=== PATIENT | female | born 1980 | race Hispanic/Latino ===

== ENCOUNTER 2021-08-31 06:17 | Day surgery (SDC) | payer OTHER ==
[2021-08-31 07:03] LABS: Basophils # (Auto) 0.1 K/mm3 (0.0-0.1); Basophils % (Auto) 0.8 % (0.0-1.8); Eosinophils # (Auto) 0.1 K/mm3 (0.0-0.4); Eosinophils % (Auto) 1.3 % (0.0-4.3); Lymphocytes # (Auto) 2.9 K/mm3 (1.2-5.4); Lymphocytes % (Auto) 41.6 % (13.4-35.0); Mean Corpuscular HGB Conc 33 % (30-34); Mean Corpuscular Volume 88 fl (79-97); Monocytes # (Auto) 0.5 K/mm3 (0.0-0.8); Monocytes % (Auto) 7.7 % (0.0-7.3); Platelet Count 258 K/mm3 (140-440); Red Blood Count 4.42 M/mm3 (3.65-5.03); Red Cell Distribution Width 13.4 % (13.2-15.2)
[2021-08-31 07:13] LABS: INR 0.96 (0.87-1.13)
[2021-08-31 07:14] LABS: Partial Thromboplastin Time 26.9 Sec. (24.2-36.6)
[2021-08-31 07:15] LABS: Blood Urea Nitrogen 6 mg/dL (7-17); Calcium 9.4 mg/dL (8.4-10.2); Hemolysis Index 3
[2021-08-31 07:26] LABS: BUN/Creatinine Ratio 10
[2021-08-31] MEDS: SODIUM CHLORIDE 0.9% 500 ML 500 ML IV SCH ×2 (07:52→08:14)
[2021-08-31] MEDS ORDERED: HEPARIN/NS 5000 UNIT/500ML 1,000 ML IR ONE (08:07)
[2021-08-31] MEDS ORDERED: HEPARIN 10,000 UNITS/10 ML VIAL ONE (08:08)
[2021-08-31] MEDS: MIDAZOLAM 2 MG/2 ML INJ ONE ×3 (08:13→09:19)
[2021-08-31] MEDS: LIDOCAINE (1%) 10 MG/1 ML VIAL 20 ML MDV ONE ×2 (08:14→09:07)
[2021-08-31] MEDS: fentaNYL 100 MCG/2 ML INJ ONE ×3 (08:14→09:20)
[2021-08-31] MEDS ORDERED: HEPARIN/NS 5000 UNIT/500ML 500 ML IR ONE (09:04)
--- NOTE | 2021-08-31 09:37 | Short Stay Summary ---
Short Stay Documentation Date of service: 08/31/21 - History Principal diagnosis: Venous hypertension with bilateral lower extremity pain, swelling and bulgi H&P: obtained from office - Allergies and Medications Current Medications: Allergies diphenhydramine [From Benadryl] Allergy (Verified 08/31/21 06:43) Shortness of Breath Iodinated Contrast Media Allergy (Verified 08/31/21 06:43) Hives latex Allergy (Verified 08/31/21 07:04) Rash Penicillins Allergy (Verified 08/31/21 06:43) Rash Home Medications Medication Instructions Recorded Confirmed Last Taken Type Albuterol Sulfate [Proventil Hfa] 6.7 gm IH PRN PRN 08/31/21 08/31/21 08/02/21 History 2 puffs HYDROcodone/APAP 5-325 [[place] 1 tab PO Q6H PRN 08/31/21 08/31/21 08/30/21 History 5-325 mg TAB] 1 tab Loratadine [Claritin] 10 mg PO DAILY 08/31/21 08/31/21 08/30/21 History 10 mg Ondansetron [Zofran ODT TAB] 1 tab PO Q8HR PRN 08/31/21 08/31/21 08/31/21 05:30 History hydrOXYzine HCL [Atarax] 25 mg PO PRN PRN 08/31/21 08/31/21 Unknown History predniSONE [Deltasone] 20 mg PO QDAY 08/31/21 08/31/21 08/30/21 History 20 mg Active Medications Sodium Chloride (Nacl 0.9% 500 Ml) 500 mls @ 50 mls/hr IV DIRECT DB Last Admin: 08/31/21 08:14 Dose: 50 mls/hr - Brief post op/procedure progress note Date of procedure: 08/31/21 Pre-op diagnosis: Venous hypertension, pelvic congestion Post-op diagnosis: same Procedure: Bilateral lower extremity venogram with intravascular ultrasound alone, venogram of left renal vein and left gonadal vein using gadolinium is contrast Anesthesia: local Surgeon: DORA THOMPSON Estimated blood loss: none Condition: stable - Disposition Condition at discharge: Good Disposition: 01 HOME / SELF CARE / HOMELESS Short Stay Discharge Plan Activity: advance as tolerated Weight Bearing Status: Weight Bear as Tolerated Diet: regular Wound: keep clean and dry, per your surgeon's advice Follow up with: ERIC HERRERA [Other] - 7 Days
--- NOTE | 2021-08-31 09:44 | Operative Report ---
Operative Report Operative Report: Exam: Bilateral lower extremity intravascular ultrasound, left renal venogram, left gonadal venogram Clinical indication: Patient with a history of abdominal pelvic pain as well as bilateral lower extremity pain who was noted to have significant compression of the common iliac veins on abdominal pelvic ultrasound as well as the presence of numerous pelvic varicosities. Date: 08/31/2021 Procedure: Following an explanation of the risk, benefits and alternatives; written informed consent was obtained. The patient was brought to the angiographic suite and placed in supine position on the examination table. Initial ultrasound evaluation of her right arm demonstrated a patent basilic vein. The patient's right arm was prepped and draped in the usual sterile fashion. 1% lidocaine was used for anesthesia. Under ultrasound guidance, the right basilic vein was cannulated with a 7 cm 18- gauge needle. A 0.035 guidewire was advanced centrally. The needle was removed and a 5 Pashto sheath placed. A vertebral catheter was then advanced over the guidewire and together the guidewire and catheter advanced centrally under fluoroscopy. Selective cannulation of the IVC was then performed under fluoroscopy and the guidewire and catheter advanced to the right proximal femoral vein. The catheter was removed. The sheath was upsized over the guidewire to a 8 Pashto sheath. Intravascular ultrasound was then performed. Images were obtained of the external iliac vein, common iliac vein and distal IVC. There is significant 60% stenosis within the external iliac vein, there is mild 40% stenosis within the common iliac vein. The intravascular ultrasound and guidewire were then withdrawn proximally under fluoroscopy and the guidewire directed down the left system. Together the catheter and guidewire were advanced into the left external iliac vein. There is near occlusive stenosis of the left common iliac vein of approximately 90%. There is 50% stenosis of the external iliac vein. The intravascular ultrasound catheter was then removed over the guidewire and the vertebral catheter again advanced over the guidewire. The catheter and guidewire were then advanced proximally in the IVC. The guidewire was exchanged for a Glidewire and selective cannulation of the left renal vein was then performed under fluoroscopy. Together the catheter and guidewire were advanced into the proximal left gonadal vein. Contrast was injected which demonstrates dilation of the left gonadal vein to approximately 8 mm in diameter. The catheter and guidewire were then advanced distally down the left gonadal vein. Contrast was injected. This demonstrates the presence of numerous pelvic varicosities which extends across from left to right through the bridging myometrial veins. There is significant delay in clearance of contrast with persistence of contrast staining within the varicosities on delayed imaging approximately 2 to 3 minutes later. The catheter and guidewire were then advanced proximally into the left renal vein. Contrast was injected. This demonstrates mild compression of the left renal vein with no hemodynamically significant stenosis. At this point, the catheters, guidewires and sheaths were removed and hemostasis achieved in the right arm using manual compression. A sterile dressing was applied. The patient tolerated the procedure well. There were no immediate postprocedure complications. Conscious sedation was performed under the guidance of radiologic nursing. Continuous cardiopulmonary monitoring was utilized. 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 2) Venogram with catheter placed in the left renal vein and left gonadal vein at multiple positioning demonstrates that there is mild flattening of the left renal vein with no hemodynamically significant stenosis. There is dilation of the left gonadal vein to 8 mm in diameter with extension into massive pelvic varicosities which cross the midline. 3) The examination was performed without the use of iodinated contrast. A total of 30 mL of gadolinium contrast was utilized during the course of this examination.
[2021-08-31 10:31] VITALS: BP 123/80
== END 2021-08-31 10:51 | disposition home or self-care (01) ==
LOC: CATHLABREC 06:17
PROVIDERS: ATTEND Radiology Diagnostic Radiology
DX: I87.1 Compression of vein (principal); M19.90 Unspecified osteoarthritis, unspecified site; J45.909 Unspecified asthma, uncomplicated; F41.9 Anxiety disorder, unspecified; Z87.442 Personal history of urinary calculi; Z98.890 Other specified postprocedural states; Z88.0 Allergy status to penicillin; Z91.040 Latex allergy status; Z88.8 Allergy status to other drugs, medicaments and biological substances; Z79.899 Other long term (current) drug therapy; Z87.891 Personal history of nicotine dependence; Z90.49 Acquired absence of other specified parts of digestive tract; Z82.49 Family history of ischemic heart disease and other diseases of the circulatory system
CPT/HCPCS: 36012; 36415; 37252; 37253; 75831; 80048; 85025; 85610; 85730; 99156; 99157; C1753; C1769; J1644; J2250; J3010; J7040; 36011; 75822; Q9967